=== PATIENT | female | born 1970 | race American Indian/Alaskan Native ===

== ENCOUNTER 2017-06-09 08:32 | Emergency (ER) | payer MEDICAID ==
[2017-06-09 09:24] LABS: Basophils % (Auto) 1.9 % (0.0-1.8); Eosinophils % (Auto) 5.7 % (0.0-4.3); Hematocrit 38.4 % (30.3-42.9); Hemoglobin 12.3 gm/dl (10.1-14.3); Mean Corpuscular HGB Conc 32 % (30-34); Mean Corpuscular Volume 73 fl (79-97); Platelet Count 275 K/mm3 (140-440); Red Blood Count 5.23 M/mm3 (3.65-5.03); Red Cell Distribution Width 17.6 % (13.2-15.2); White Blood Count 3.8 K/mm3 (4.5-11.0)
[2017-06-09 09:26] LABS: Mean Corpuscular Hemoglobin 24 pg (28-32)
[2017-06-09 09:42] LABS: BUN/Creatinine Ratio 13; Blood Urea Nitrogen 12 mg/dL (7-17); Carbon Dioxide 25 mmol/L (22-30); Glucose 64 mg/dL (65-100)
[2017-06-09 10:22] LABS: Anion Gap 16 mmol/L; Chloride 104.5 mmol/L (98-107); Potassium 4.4 mmol/L (3.6-5.0); Sodium 141 mmol/L (137-145)
[2017-06-09] MEDS ORDERED: MORPHINE IV ONE (10:37)
--- NOTE | 2017-06-09 10:37 | Emergency Department Report ---
ED Chest Pain HPI - General Chief Complaint: Chest Pain Stated Complaint: CP Time Seen by Provider: 06/09/17 10:03 Source: EMS Mode of arrival: Stretcher Limitations: No Limitations - History of Present Illness Initial Comments: This is a 46 year-old female who presents to the emergency department with a complaint of left-sided chest pain with radiation down the left arm. This is associated with some shortness of breath but she denies any fever, nausea, vomiting, cough, back pain or diaphoresis. She has a past medical history significant for hypertension, CHF, hypothyroidism, HIV. The patient was out of her blood pressure medication for a while. She went to an urgent care yesterday with the same symptoms and was told to go to the emergency department. The pain increased prior to going to the ER so EMS was called and she was seen by EMS/fire department. They checked her blood pressure and the patient says that she was told that her symptoms it may not be due to her elevated blood pressure. She says that at this time she went back to the urgent care where they did an EKG, sent her home with a prescription for sublingual nitroglycerin, and gave her a referral for cardiology. She was unable to get into cardiology yesterday but has an appointment set up next week with [facility]. The pain came back or increased this morning so the patient took a sublingual nitroglycerin and 2 baby aspirin without any relief and came into the emergency department for further evaluation. She does not currently have a primary care physician. No recent travel or sick contacts at home. - Related Data Allergies Allergy/AdvReac Type Severity Reaction Status Date / Time abacavir sulfate Allergy Rash Verified 03/27/16 12:04 [From [facility]] Heart Score - HEART Score History: Moderately suspicious EKG: Non-specific Age: 45-65 Risk factors: 1-2 risk factors Troponin: < normal limit HEART Score: 4 - Critical Actions Critical Actions: 4-6 pts:12-16.6% risk of adverse cardiac event. Should be admitted ED Review of Systems ROS: Stated complaint: CP Other details as noted in HPI Comment: All other systems reviewed and negative Constitutional: denies: chills, fever Eyes: denies: eye pain, eye discharge, vision change ENT: denies: ear pain, throat pain Respiratory: shortness of breath. denies: cough, wheezing Cardiovascular: chest pain. denies: palpitations Gastrointestinal: denies: abdominal pain, nausea, diarrhea Genitourinary: denies: urgency, dysuria, discharge Musculoskeletal: denies: back pain, joint swelling Skin: denies: rash, lesions Neurological: denies: headache, weakness, paresthesias ED Past Medical Hx - Past Medical History Previous Medical History?: Yes Hx Hypertension: Yes Hx Congestive Heart Failure: Yes Additional medical history: pneumonia, AIDS - Surgical History Past Surgical History?: Yes Additional Surgical History: , tubal ligation - Social History Smoking Status: Current Every Day Smoker Substance Use Type: None ED Physical Exam - General Limitations: No Limitations - Other Other exam information: GENERAL: The patient is well-developed well-nourished. HENT: Normocephalic. Atraumatic. Patient has moist mucous membranes. EYES: Extraocular motions are intact. Pupils equal reactive to light bilaterally. NECK: Supple. Trachea is midline. CHEST/LUNGS: Clear to auscultation. There is no respiratory distress noted. HEART/CARDIOVASCULAR: Regular. There is no tachycardia. There is no gallop rub or murmur. ABDOMEN: Abdomen is soft, nontender. Patient has normal bowel sounds. There is no abdominal distention. Obese habitus. SKIN: Skin is warm and dry. NEURO: The patient is awake, alert, and oriented. The patient is cooperative. The patient has no focal neurologic deficits. The patient has normal speech. MUSCULOSKELETAL: There is no tenderness or deformity. There is no limitation range of motion. There is no evidence of acute injury. ED Course Vital Signs 06/09/17 06/09/17 06/09/17 09:06 10:01 10:59 Pulse Rate 69 68 Respiratory 16 16 18 Rate Blood Pressure 06/09/17 06/09/17 11:00 12:00 Pulse Rate 72 67 Respiratory 16 16 Rate Blood Pressure 151/83 148/93 IRVIN score - Irvin Score Age > 65: (0) No Aspirin use within the Past 7 Days: (0) No 3 or more CAD Risk Factors: (0) No 2 or more Angina events in past 24 hrs: (1) Yes Known CAD with more than 50% Stenosis: (0) No Elevated Cardiac Markers: (0) No ST Deviation Greater than 0.5mm: (0) No IRVIN Score: 1 ED Medical Decision Making - Lab Data Result diagrams: 06/09/17 09:11 06/09/17 09:11 - EKG Data -: EKG Interpreted by Me EKG shows normal: sinus rhythm, axis, intervals, QRS complexes (septal and anterior Q waves, LVH), ST-T waves Rate: normal - EKG Data When compared to previous EKG there are: previous EKG unavailable Interpretation: other (sinus rhythm, normal axis, Q waves to the septal and anterior leads, LVH) - Radiology Data Radiology results: image reviewed interpreted by me: Chest x-ray does not show any acute process. There are no pleural effusions, obvious pneumonia and there is no pneumothorax. - Medical Decision Making This is a 46-year-old female presents to the emergency department with a complaint of some chest pain and shortness of breath. EKG does not show any ST elevation AR. Labs so far been unremarkable including negative troponins 2 and a negative d-dimer. Chest x-ray did not show any pneumonia or any pleural effusions or any acute process. Upon reevaluation, the patient says that she has not having any further pain and is currently symptomatically. The plan was to get a second EKG and if negative, the patient would be discharged to follow up with cardiology, she says she has an appointment with next week. However the patient appears to have eloped from the emergency department without the second EKG and without discharge paperwork. - Differential Diagnosis AR, PE, costochondritis, pneumonia Critical Care Time: No Critical care attestation.: If time is entered above; I have spent that time in minutes in the direct care of this critically ill patient, excluding procedure time. ED Disposition Clinical Impression: Chest pain Qualifiers: Chest pain type: unspecified Qualified Code(s): R07.9 - Chest pain, unspecified Hypertension Qualifiers: Hypertension type: essential hypertension Qualified Code(s): I10 - Essential ( primary) hypertension Disposition: ELOPED Is pt being admited?: No Condition: Stable Instructions: Chest Pain (ED), Hypertension (ED) Referrals: PRIMARY CARE, [Primary Care Provider] - 3-5 Days Time of Disposition: 13:00
--- NOTE | 2017-06-09 10:39 | XRay Report ---
CHEST TWO VIEWS: 06/09/17 08:32:00 CLINICAL: Chest pain. COMPARISON: 03/27/16 FINDINGS: Normal heart and pulmonary vasculature.Aortic tortuosity. The lungs are normally expanded and clear.The bones and soft tissues are unremarkable. IMPRESSION: No acute cardiopulmonary process.
[2017-06-09] MEDS ORDERED: MORPHINE ONE (10:56)
[2017-06-09 12:07] VITALS: BP 148/93
== END 2017-06-09 14:39 | disposition left against medical advice (07) ==
LOC: ED 08:32
DX: R07.9 Chest pain, unspecified (principal); I10 Essential (primary) hypertension; I50.9 Heart failure, unspecified; F17.200 Nicotine dependence, unspecified, uncomplicated; Z88.8 Allergy status to other drugs, medicaments and biological substances
CPT/HCPCS: 36415; 71020; 80048; 84443; 84484; 84703; 85025; 85379; 93005; 93010; 96374; 99284; J2270